=== PATIENT | female | born 1990 | race Caucasian/White ===

== ENCOUNTER 2017-07-02 16:14 | Emergency (ER) | payer MEDICARE, MEDICAID ==
[~2017-07-02] VITALS: Ht 152.4 cm; Wt 53.8 kg
[~2017-07-02 16:14] MED LIST: DULO-31 PO; HYDR-3686 PO; OXCA600T5 PO; QUET-1 PO; ZONI100C42 PO
[2017-07-02 17:17] VITALS: BP 100/70
== END 2017-07-02 18:43 | disposition home or self-care (01) ==
LOC: ER 16:14
DX: H69.83 Other specified disorders of Eustachian tube, bilateral (principal); F17.200 Nicotine dependence, unspecified, uncomplicated; F12.10 Cannabis abuse, uncomplicated; F15.10 Other stimulant abuse, uncomplicated; Z91.048 Other nonmedicinal substance allergy status
CPT/HCPCS: 99281

== ENCOUNTER 2017-07-20 07:43 | Emergency (ER) | payer MEDICARE, MEDICAID ==
[~2017-07-20] VITALS: Ht 152.4 cm; Wt 59.0 kg
[2017-07-20] MEDS ORDERED: LORazepam 2 mg/ml vial IV ONE (07:50)
[2017-07-20 08:19] LABS: BASOPHILS % (AUTO) 0.3 % (0-1); EOSINOPHILS # (AUTO) 0.3 X10'3 (0-0.9); EOSINOPHILS % (AUTO) 2.9 % (0-6); HEMATOCRIT 39.1 % (35.0-45.0); HEMOGLOBIN 13.5 g/dl (12.0-16.0); LYMPHOCYTES # (AUTO) 1.2 X10'3 (1.1-4.8); MEAN CORPUSCULAR HEMOGLOBIN 32.6 PG (27.0-31.0); MEAN CORPUSCULAR HGB CONC 34.5 % (33.0-36.5); MEAN CORPUSCULAR VOLUME 94.4 FL (78-98); MEAN PLATELET VOLUME 6.6 FL (7.4-10.4); MONOCYTES # (AUTO) 0.4 X10'3 (0-0.9); MONOCYTES % (AUTO) 4.5 % (2-12); NEUTROPHILS # (AUTO) 7.3 X10'3 (1.8-7.7); NEUTROPHILS % (AUTO) 79.3 % (42-75); PLATELET COUNT 369 X10'3 (140-440); RED BLOOD COUNT 4.15 X10'6 (4.20-5.60); RED CELL DISTRIBUTION WIDTH 13.3 % (11.5-14.5); WHITE BLOOD COUNT 9.2 X10'3 (4.5-11.0)
[2017-07-20 08:34] LABS: ALANINE AMINOTRANSFERASE 31 U/L (12-78); ALBUMIN 3.6 G/DL (3.4-5.0); ALKALINE PHOSPHATASE 65 IU/L (46-116); ANION GAP 6 (8-16); ASPARTATE AMINO TRANSFERASE 14 U/L (10-37); BILIRUBIN,TOTAL 0.2 MG/DL (0.1-1.0); BLOOD UREA NITROGEN 10 MG/DL (7-18); BUN/CREATININE RATIO 12.7 (6.6-38.0); CALCIUM 9.2 MG/DL (8.5-10.1); CHLORIDE 107 MMOL/L (99-107); CREATININE 0.79 MG/DL (0.40-0.90); GLUCOSE 100 MG/DL (70-104); POTASSIUM 4.1 MMOL/L (3.5-5.1); SODIUM 139 MMOL/L (135-145); TOTAL CARBON DIOXIDE 25.6 MMOL/L (24-32); TOTAL PROTEIN 7.2 G/DL (6.4-8.2); eGFR 88 ML/MIN
[2017-07-20] MEDS ORDERED: oxcarbazepine 150mg tablet PO ONE (08:35)
[2017-07-20] MEDS ORDERED: oxcarbazepine 150mg tablet PO SCH (08:35)
[2017-07-20 09:29] VITALS: BP 94/59
== END 2017-07-20 09:33 | disposition home or self-care (01) ==
LOC: ER 07:44
DX: G40.909 Epilepsy, unspecified, not intractable, without status epilepticus (principal); F12.10 Cannabis abuse, uncomplicated; F15.10 Other stimulant abuse, uncomplicated; F17.210 Nicotine dependence, cigarettes, uncomplicated; Z88.8 Allergy status to other drugs, medicaments and biological substances
CPT/HCPCS: 36415; 80053; 85025; 96374; 99284; J2060

== ENCOUNTER 2017-07-27 13:19 | Emergency (ER) | payer MEDICARE, MEDICAID ==
[~2017-07-27] VITALS: Ht 152.4 cm; Wt 51.5 kg
[2017-07-27] MEDS ORDERED: KEN0.1O TP (15:34)
[2017-07-27] MEDS ORDERED: DIPH50CA3 PO (15:34)
[2017-07-27 16:01] VITALS: BP 100/58
== END 2017-07-27 16:02 | disposition home or self-care (01) ==
LOC: ER 13:20
DX: S70.361A Insect bite (nonvenomous), right thigh, initial encounter (principal); S60.861A Insect bite (nonvenomous) of right wrist, initial encounter; S20.469A Insect bite (nonvenomous) of unspecified back wall of thorax, initial encounter; R21 Rash and other nonspecific skin eruption; F12.10 Cannabis abuse, uncomplicated; F15.10 Other stimulant abuse, uncomplicated; Z88.8 Allergy status to other drugs, medicaments and biological substances; Z79.899 Other long term (current) drug therapy; W57.XXXA Bitten or stung by nonvenomous insect and other nonvenomous arthropods, initial encounter; Y93.89 Activity, other specified; Y92.89 Other specified places as the place of occurrence of the external cause; Y99.8 Other external cause status
CPT/HCPCS: 99283

== ENCOUNTER 2017-08-01 09:20 | Emergency (ER) | payer MEDICARE, MEDICAID ==
[~2017-08-01] VITALS: Ht 152.4 cm; Wt 50.9 kg
[~2017-08-01 09:20] MED LIST changes: +DIPH50CA3 PO; +KEN0.1O TP
[2017-08-01 10:10] LABS: BASOPHILS % (AUTO) 0.8 % (0-1); EOSINOPHILS # (AUTO) 0.4 X10'3 (0-0.9); EOSINOPHILS % (AUTO) 6.5 % (0-6); HEMATOCRIT 42.7 % (35.0-45.0); HEMOGLOBIN 15.1 g/dl (12.0-16.0); LYMPHOCYTES # (AUTO) 2.1 X10'3 (1.1-4.8); LYMPHOCYTES % (AUTO) 34.9 % (21-51); MEAN CORPUSCULAR HEMOGLOBIN 33.3 PG (27.0-31.0); MEAN CORPUSCULAR HGB CONC 35.2 % (33.0-36.5); MEAN CORPUSCULAR VOLUME 94.6 FL (78-98); MEAN PLATELET VOLUME 6.9 FL (7.4-10.4); MONOCYTES # (AUTO) 0.5 X10'3 (0-0.9); MONOCYTES % (AUTO) 8.5 % (2-12); NEUTROPHILS % (AUTO) 49.3 % (42-75); PLATELET COUNT 298 X10'3 (140-440); RED BLOOD COUNT 4.52 X10'6 (4.20-5.60); RED CELL DISTRIBUTION WIDTH 14.6 % (11.5-14.5); WHITE BLOOD COUNT 6.1 X10'3 (4.5-11.0)
[2017-08-01 10:24] LABS: ALANINE AMINOTRANSFERASE 32 U/L (12-78); ALBUMIN 4.1 G/DL (3.4-5.0); ALBUMIN/GLOBULIN RATIO 1.1 (1.1-1.5); ALKALINE PHOSPHATASE 98 IU/L (46-116); ANION GAP 10 (8-16); ASPARTATE AMINO TRANSFERASE 13 U/L (10-37); BILIRUBIN,TOTAL 0.2 MG/DL (0.1-1.0); BLOOD UREA NITROGEN 14 MG/DL (7-18); CALCIUM 8.8 MG/DL (8.5-10.1); CHLORIDE 105 MMOL/L (99-107); GLUCOSE 86 MG/DL (70-104); LIPASE 185 U/L (73-393); POTASSIUM 4.2 MMOL/L (3.5-5.1); SODIUM 139 MMOL/L (135-145); TOTAL CARBON DIOXIDE 24.5 MMOL/L (24-32); TOTAL PROTEIN 7.8 G/DL (6.4-8.2); eGFR 67 ML/MIN
[2017-08-01 10:36] LABS: URINE HCG NEGATIVE (NEG)
[2017-08-01 10:40] LABS: CLARITY,URINE Clear (Clear); COLOR,URINE Yellow (Yellow); GLUCOSE, URINE Negative (Neg); KETONES,URINE Negative (Neg); LEUKOCYTE ESTERASE ,URINE Negative (Neg); NITRITES, URINE Negative (Neg); OCCULT BLOOD,URINE Negative (Neg); PH,URINE 7.5 (4.8-8.0); PROTEIN,URINE Negative (Neg); UROBILINOGEN,URINE 0.2 E.U/dL (0.2-1.0)
[2017-08-01 10:50] LABS: UA COLLECTION TYPE CLN CATCH MIDSTREAM
[2017-08-01 12:55] VITALS: BP 109/74
== END 2017-08-01 12:57 | disposition home or self-care (01) ==
LOC: ER 09:21
DX: R10.30 Lower abdominal pain, unspecified (principal); M54.5 Low back pain; F17.200 Nicotine dependence, unspecified, uncomplicated; F12.10 Cannabis abuse, uncomplicated; F15.10 Other stimulant abuse, uncomplicated
CPT/HCPCS: 36415; 76856; 80053; 81003; 81025; 83690; 85025; 87491; 99285

== ENCOUNTER 2020-06-25 16:56 | Emergency (ER) | payer MEDICAID, MEDICARE ==
[~2020-06-25] VITALS: Ht 152.4 cm; Wt 54.4 kg
[~2020-06-25 16:56] MED LIST changes: -KEN0.1O TP
[2020-06-25 17:05] VITALS: BP 114/71
[2020-06-25 17:55] LABS: BASOPHILS # (AUTO) 0.1 X10'3 (0-0.2); EOSINOPHILS # (AUTO) 0.1 X10'3 (0-0.9); EOSINOPHILS % (AUTO) 2.4 % (0-6); HEMATOCRIT 41.6 % (35.0-45.0); HEMOGLOBIN 14.3 g/dl (12.0-16.0); LYMPHOCYTES # (AUTO) 2.3 X10'3 (1.1-4.8); LYMPHOCYTES % (AUTO) 39.5 % (21-51); MEAN CORPUSCULAR HEMOGLOBIN 32.4 PG (27.0-31.0); MEAN CORPUSCULAR HGB CONC 34.4 g/dL (33.0-36.5); MEAN CORPUSCULAR VOLUME 94.2 FL (78-98); MEAN PLATELET VOLUME 7.1 FL (7.4-10.4); MONOCYTES # (AUTO) 0.4 X10'3 (0-0.9); MONOCYTES % (AUTO) 6.7 % (2-12); NEUTROPHILS % (AUTO) 50.4 % (42-75); PLATELET COUNT 329 X10'3 (140-440); RED BLOOD COUNT 4.41 X10'6 (4.20-5.60); RED CELL DISTRIBUTION WIDTH 13.3 % (11.5-14.5); WHITE BLOOD COUNT 5.9 X10'3 (4.5-11.0)
== END 2020-06-25 19:18 | disposition home or self-care (01) ==
LOC: ER 16:57
DX: T83.89XA Other specified complication of genitourinary prosthetic devices, implants and grafts, initial encounter (principal); F31.9 Bipolar disorder, unspecified; F17.200 Nicotine dependence, unspecified, uncomplicated; F15.10 Other stimulant abuse, uncomplicated; F12.10 Cannabis abuse, uncomplicated; Z88.4 Allergy status to anesthetic agent; Y82.9 Unspecified medical devices associated with adverse incidents; Y92.89 Other specified places as the place of occurrence of the external cause
CPT/HCPCS: 36415; 85025; 99283

== ENCOUNTER 2020-12-04 09:38 | Emergency (ER) | payer MEDICAID ==
[~2020-12-04] VITALS: Ht 152.4 cm; Wt 57.7 kg
[2020-12-04] MEDS ORDERED: normal saline 1000ML IV soln IVB ONE (10:25)
[2020-12-04] MEDS ORDERED: metoclopramide 5 mg/ml inj IV ONE (10:25)
[2020-12-04] MEDS ORDERED: magnesium 2GM in 50ml NS 50 ML IV ONE (10:25)
[2020-12-04] MEDS ORDERED: LORazepam 2 mg/ml vial IV ONE (10:25)
[2020-12-04 10:43] LABS: BASOPHILS % (AUTO) 0.6 % (0-1); EOSINOPHILS # (AUTO) 0.1 X10'3 (0-0.9); EOSINOPHILS % (AUTO) 0.8 % (0-6); HEMATOCRIT 41.7 % (35.0-45.0); HEMOGLOBIN 14.4 g/dl (12.0-16.0); LYMPHOCYTES # (AUTO) 1.1 X10'3 (1.1-4.8); LYMPHOCYTES % (AUTO) 17.3 % (21-51); MEAN CORPUSCULAR HEMOGLOBIN 32.7 PG (27.0-31.0); MEAN CORPUSCULAR HGB CONC 34.6 g/dL (33.0-36.5); MEAN CORPUSCULAR VOLUME 94.4 FL (78-98); MEAN PLATELET VOLUME 7.2 FL (7.4-10.4); MONOCYTES # (AUTO) 0.3 X10'3 (0-0.9); MONOCYTES % (AUTO) 5.4 % (2-12); NEUTROPHILS # (AUTO) 4.8 X10'3 (1.8-7.7); NEUTROPHILS % (AUTO) 75.9 % (42-75); PLATELET COUNT 320 X10'3 (140-440); RED BLOOD COUNT 4.42 X10'6 (4.20-5.60); RED CELL DISTRIBUTION WIDTH 13.4 % (11.5-14.5); WHITE BLOOD COUNT 6.4 X10'3 (4.5-11.0)
[2020-12-04 10:59] LABS: ALANINE AMINOTRANSFERASE 21 U/L (12-78); ALBUMIN 4.2 G/DL (3.4-5.0); ALBUMIN/GLOBULIN RATIO 1.1 (1.1-1.5); ALKALINE PHOSPHATASE 63 IU/L (46-116); ANION GAP 12 (8-16); ASPARTATE AMINO TRANSFERASE 24 U/L (10-37); BILIRUBIN,TOTAL 0.3 MG/DL (0.1-1.0); BLOOD UREA NITROGEN 13 MG/DL (7-18); BUN/CREATININE RATIO 15.5 (6.6-38.0); CALCIUM 8.8 MG/DL (8.5-10.1); CHLORIDE 103 MMOL/L (99-107); CREATININE 0.84 MG/DL (0.40-0.90); GLUCOSE 93 MG/DL (70-104); POTASSIUM 3.8 MMOL/L (3.5-5.1); SODIUM 137 MMOL/L (135-145); eGFR 80 ML/MIN
--- NOTE | 2020-12-04 11:17 | NUR ---
ASSUMED CARE. REPORT RECEIVED FROM AMARA COCHRAN. PT SHOWS NO S/S OF ACUTE DISTRESS.
--- NOTE | 2020-12-04 11:43 | NUR ---
pt sleeping, RR even and unlabored, unable to give UA at this time
[2020-12-04] MEDS ORDERED: dexamethasone sod phosphate 10mg/ml inj IV STA (12:18)
[2020-12-04] MEDS ORDERED: ketorolac trometh. 30mg/ml inj. IV ONE (12:20)
[2020-12-04 13:15] VITALS: BP 108/68
== END 2020-12-04 13:20 | disposition home or self-care (01) ==
LOC: ER 09:38
DX: G43.909 Migraine, unspecified, not intractable, without status migrainosus (principal); G40.909 Epilepsy, unspecified, not intractable, without status epilepticus; R11.0 Nausea; F41.9 Anxiety disorder, unspecified; F31.9 Bipolar disorder, unspecified; F12.90 Cannabis use, unspecified, uncomplicated; F15.90 Other stimulant use, unspecified, uncomplicated; Z86.69 Personal history of other diseases of the nervous system and sense organs; Z72.89 Other problems related to lifestyle; Z88.8 Allergy status to other drugs, medicaments and biological substances; Z79.899 Other long term (current) drug therapy
CPT/HCPCS: 36415; 70450; 80053; 85025; 93005; 96365; 96366; 96375; 99285; J1100; J1885; J2060; J2765; J3475; J7030

== ENCOUNTER 2020-12-16 16:29 | Emergency (ER) | payer MEDICAID ==
[~2020-12-16] VITALS: Ht 152.4 cm; Wt 133.0 kg
[2020-12-16 17:21] VITALS: BP 118/80
--- NOTE | 2020-12-16 17:21 | NUR ---
awaiting ed MD.
--- NOTE | 2020-12-16 17:22 | NUR ---
Dr. Galeano at bedside.
[2020-12-16] MEDS ORDERED: normal saline 1000ml 1,000 ML IV ONE (17:25)
[2020-12-16] MEDS ORDERED: ketorolac trometh. 30mg/ml inj. IV ONE (17:25)
[2020-12-16] MEDS ORDERED: proCHLORperazine 10 MG/2 ml inj IV ONE (17:25)
[2020-12-16] MEDS ORDERED: diphenhydrAMINE 50 mg/ml inj IV ONE (17:25)
[2020-12-16] MEDS ORDERED: dexamethasone 4mg/ml inj IV SCH (17:25)
[2020-12-16] MEDS ORDERED: acetaminophen 325mg tablet PO ONE (17:25)
--- NOTE | 2020-12-16 18:14 | NUR ---
PT SCREEMING AT STAFF, THROWING IV POLE AND ALMOST MISSING RN. SECURITY CALLED FOR ASSISTANCE IN REMOVING IV AND EXCORTING PT OUT OF ER.
== END 2020-12-16 19:14 | disposition left against medical advice (07) ==
LOC: ER 16:29
DX: G43.909 Migraine, unspecified, not intractable, without status migrainosus (principal); F41.9 Anxiety disorder, unspecified; F31.9 Bipolar disorder, unspecified; F12.90 Cannabis use, unspecified, uncomplicated; F15.90 Other stimulant use, unspecified, uncomplicated; Z86.69 Personal history of other diseases of the nervous system and sense organs; Z72.89 Other problems related to lifestyle; Z88.8 Allergy status to other drugs, medicaments and biological substances; Z79.899 Other long term (current) drug therapy
CPT/HCPCS: 99281

== ENCOUNTER 2021-01-05 12:16 | Emergency (ER) | payer MEDICAID ==
[~2021-01-05] VITALS: Ht 152.4 cm; Wt 57.7 kg
[2021-01-05] MEDS ORDERED: LORazepam 2 mg/ml vial IV ONE (12:30)
[2021-01-05 13:13] LABS: BASOPHILS % (AUTO) 0.6 % (0-1); EOSINOPHILS # (AUTO) 0.2 X10'3 (0-0.9); HEMATOCRIT 36.7 % (35.0-45.0); HEMOGLOBIN 12.5 g/dl (12.0-16.0); LYMPHOCYTES # (AUTO) 1.8 X10'3 (1.1-4.8); LYMPHOCYTES % (AUTO) 32.3 % (21-51); MEAN CORPUSCULAR HEMOGLOBIN 32.4 PG (27.0-31.0); MEAN CORPUSCULAR HGB CONC 34.1 g/dL (33.0-36.5); MEAN PLATELET VOLUME 7.4 FL (7.4-10.4); MONOCYTES # (AUTO) 0.4 X10'3 (0-0.9); MONOCYTES % (AUTO) 7.8 % (2-12); NEUTROPHILS # (AUTO) 3.2 X10'3 (1.8-7.7); NEUTROPHILS % (AUTO) 56.3 % (42-75); PLATELET COUNT 298 X10'3 (140-440); RED BLOOD COUNT 3.86 X10'6 (4.20-5.60); RED CELL DISTRIBUTION WIDTH 13.2 % (11.5-14.5); WHITE BLOOD COUNT 5.6 X10'3 (4.5-11.0)
[2021-01-05 13:20] LABS: ALANINE AMINOTRANSFERASE 19 U/L (12-78); ALBUMIN 3.5 G/DL (3.4-5.0); ALBUMIN/GLOBULIN RATIO 1.1 (1.1-1.5); ALKALINE PHOSPHATASE 47 IU/L (46-116); ANION GAP 9 (8-16); ASPARTATE AMINO TRANSFERASE 11 U/L (10-37); BILIRUBIN,TOTAL 0.2 MG/DL (0.1-1.0); BLOOD UREA NITROGEN 10 MG/DL (7-18); BUN/CREATININE RATIO 12.7 (6.6-38.0); CHLORIDE 105 MMOL/L (99-107); CREATININE 0.79 MG/DL (0.40-0.90); GLUCOSE 89 MG/DL (70-104); MAGNESIUM 1.9 MG/DL (1.5-2.4); POTASSIUM 3.9 MMOL/L (3.5-5.1); SODIUM 137 MMOL/L (135-145); TOTAL PROTEIN 6.7 G/DL (6.4-8.2); eGFR 86 ML/MIN
[2021-01-05 14:09] VITALS: BP 102/66
== END 2021-01-05 14:13 | disposition home or self-care (01) ==
LOC: ER 12:17
DX: G40.909 Epilepsy, unspecified, not intractable, without status epilepticus (principal); G43.909 Migraine, unspecified, not intractable, without status migrainosus; F41.9 Anxiety disorder, unspecified; F31.9 Bipolar disorder, unspecified; F12.90 Cannabis use, unspecified, uncomplicated; F15.90 Other stimulant use, unspecified, uncomplicated; Z86.69 Personal history of other diseases of the nervous system and sense organs; Z72.89 Other problems related to lifestyle; Z88.8 Allergy status to other drugs, medicaments and biological substances; Z79.899 Other long term (current) drug therapy
CPT/HCPCS: 36415; 80053; 83735; 85025; 96374; 99284; J2060

== ENCOUNTER 2021-03-30 11:00 | Emergency (ER) | payer MEDICAID ==
[~2021-03-30] VITALS: Ht 180.3 cm; Wt 109.1 kg
[2021-03-30 11:34] VITALS: BP 122/99
[2021-03-30] MEDS ORDERED: METH4TAB81 PO (12:04)
== END 2021-03-30 12:39 | disposition home or self-care (01) ==
LOC: ER 11:00
DX: J98.01 Acute bronchospasm (principal); Z20.822 Contact with and (suspected) exposure to COVID-19; R05 Cough; R09.89 Other specified symptoms and signs involving the circulatory and respiratory systems; R50.9 Fever, unspecified; J02.9 Acute pharyngitis, unspecified; G43.909 Migraine, unspecified, not intractable, without status migrainosus; F41.9 Anxiety disorder, unspecified; F31.9 Bipolar disorder, unspecified; F17.200 Nicotine dependence, unspecified, uncomplicated; F12.90 Cannabis use, unspecified, uncomplicated; F15.90 Other stimulant use, unspecified, uncomplicated; Z86.69 Personal history of other diseases of the nervous system and sense organs; Z72.89 Other problems related to lifestyle; Z88.8 Allergy status to other drugs, medicaments and biological substances; Z79.899 Other long term (current) drug therapy
CPT/HCPCS: 36415; 99283; U0003; U0005

== ENCOUNTER 2022-11-10 19:43 | Emergency (ER) | payer MEDICAID ==
[~2022-11-10] VITALS: Ht 152.4 cm; Wt 56.8 kg
[~2022-11-10 19:43] MED LIST changes: -DIPH50CA3 PO; +DIPH50CA40 PO; +METH4TAB81 PO
[2022-11-10 19:51] VITALS: BP 117/85
== END 2022-11-10 20:41 ==
LOC: ER 19:43
DX: Z00.00 Encounter for general adult medical examination without abnormal findings (principal); G43.909 Migraine, unspecified, not intractable, without status migrainosus; F41.9 Anxiety disorder, unspecified; F31.9 Bipolar disorder, unspecified; F12.90 Cannabis use, unspecified, uncomplicated; F15.90 Other stimulant use, unspecified, uncomplicated; Z72.89 Other problems related to lifestyle; Z88.8 Allergy status to other drugs, medicaments and biological substances; Z79.899 Other long term (current) drug therapy
CPT/HCPCS: 36415; 84702; 99283

== ENCOUNTER 2022-12-17 09:13 | Emergency (ER) | payer MEDICAID ==
[~2022-12-17] VITALS: Ht 152.4 cm; Wt 58.2 kg
[2022-12-17] MEDS ORDERED: ondansetron 4mg rapidly disintigrating tab PO ONE (10:05)
[2022-12-17] MEDS ORDERED: famotidine 20mg tablet PO ONE (10:05)
[2022-12-17] MEDS ORDERED: LIDOcaine Viscous 15ml cup MM ONE (10:05)
[2022-12-17] MEDS ORDERED: mag hydrox/Alum hydrox/simeth 30ml oral suspension PO ONE (10:05)
[2022-12-17] MEDS ORDERED: pantoprazole 40mg Tablet.DR PO ONE (10:05)
[2022-12-17 10:08] LABS: BASOPHILS % (AUTO) 0.5 % (0-1); EOSINOPHILS # (AUTO) 0.1 X10'3 (0-0.9); EOSINOPHILS % (AUTO) 1.5 % (0-6); HEMATOCRIT 38.6 % (35.0-45.0); LYMPHOCYTES # (AUTO) 2.2 X10'3 (1.1-4.8); LYMPHOCYTES % (AUTO) 30.5 % (21-51); MEAN CORPUSCULAR HEMOGLOBIN 32.7 PG (27.0-31.0); MEAN CORPUSCULAR HGB CONC 33.8 g/dL (33.0-36.5); MEAN CORPUSCULAR VOLUME 96.9 FL (78-98); MEAN PLATELET VOLUME 6.9 FL (7.4-10.4); MONOCYTES # (AUTO) 0.5 X10'3 (0-0.9); MONOCYTES % (AUTO) 7.4 % (2-12); NEUTROPHILS # (AUTO) 4.4 X10'3 (1.8-7.7); NEUTROPHILS % (AUTO) 60.1 % (42-75); PLATELET COUNT 312 X10'3 (140-440); RED BLOOD COUNT 3.98 X10'6 (4.20-5.60); WHITE BLOOD COUNT 7.3 X10'3 (4.5-11.0)
[2022-12-17 10:11] LABS: CLARITY,URINE CLOUDY (Clear); COLOR,URINE STRAW (Yellow); GLUCOSE, URINE NEGATIVE (Neg); KETONES,URINE NEGATIVE (Neg); LEUKOCYTE ESTERASE ,URINE NEGATIVE (Neg); NITRITES, URINE NEGATIVE (Neg); OCCULT BLOOD,URINE TRACE-INTACT (Neg); PROTEIN,URINE NEGATIVE (Neg); URINE HCG NEGATIVE (NEG); UROBILINOGEN,URINE 0.2 E.U/dL (0.2-1.0)
[2022-12-17 10:15] LABS: UA COLLECTION TYPE CLN CATCH MIDSTREAM
[2022-12-17 10:22] LABS: ALANINE AMINOTRANSFERASE 26 U/L (12-78); ALBUMIN 3.5 G/DL (3.4-5.0); ALKALINE PHOSPHATASE 56 IU/L (46-116); ANION GAP 9 (8-16); ASPARTATE AMINO TRANSFERASE 21 U/L (10-37); BILIRUBIN,TOTAL 0.2 MG/DL (0.1-1.0); BLOOD UREA NITROGEN 14 MG/DL (7-18); BUN/CREATININE RATIO 17.5 (10.0-20.0); CALCIUM 8.6 MG/DL (8.5-10.1); CHLORIDE 102 MMOL/L (99-107); GLUCOSE 85 MG/DL (70-104); LIPASE 131 U/L (73-393); POTASSIUM 3.5 MMOL/L (3.5-5.1); SODIUM 136 MMOL/L (135-145); TOTAL CARBON DIOXIDE 24.9 MMOL/L (24-32); eGFR 84 ML/MIN
[2022-12-17 10:42] LABS: SQUAMOUS EPITHELIAL CELL,UR MODERATE /LPF (FEW)
[2022-12-17 10:43] LABS: TRANSITIONAL EPI CELLS,URINE FEW /HPF
[2022-12-17 10:44] LABS: RBC,URINE 0-2 /HPF (0-2)
[2022-12-17 10:45] LABS: BACTERIA,URINE 4+ /HPF (Neg); WBC,URINE 0-4 /HPF (0-4)
[2022-12-17 10:47] LABS: MUCUS STRANDS FEW /LPF (Neg)
[2022-12-17 12:24] VITALS: BP 131/84
[2022-12-17] MEDS ORDERED: dicyclomine 10 MG capsule PO ONE (12:25)
[2022-12-17] MEDS ORDERED: ONDA8TAB13 PO (12:30)
[2022-12-17] MEDS ORDERED: PANT20TA18 PO (12:30)
[2022-12-17] MEDS ORDERED: POLY119P2 PO (12:30)
[2022-12-17 13:47] LABS: OCCULT BLOOD STOOL POSITIVE (Neg)
--- NOTE | 2022-12-19 14:06 | NUR ---
LEFT MESSAGE REGARDING RX FOR ANTIBIOTICS PER DR MAK FOR POSITIVE URINE CULTURE.
== END 2022-12-17 12:44 | disposition home or self-care (01) ==
LOC: ER 09:13
DX: K29.00 Acute gastritis without bleeding (principal); K59.00 Constipation, unspecified; N39.0 Urinary tract infection, site not specified; R10.11 Right upper quadrant pain; G43.909 Migraine, unspecified, not intractable, without status migrainosus; F31.9 Bipolar disorder, unspecified; F12.90 Cannabis use, unspecified, uncomplicated; F15.20 Other stimulant dependence, uncomplicated; Z88.8 Allergy status to other drugs, medicaments and biological substances
CPT/HCPCS: 36415; 76700; 80053; 81001; 81025; 82272; 83690; 85025; 87077; 87088; 87186; 99284

== ENCOUNTER 2023-03-21 00:40 | Emergency (ER) | payer MEDICAID ==
[~2023-03-21] VITALS: Ht 261.6 cm; Wt 75.0 kg
[~2023-03-21 00:40] MED LIST changes: +ONDA8TAB13 PO; +PANT20TA18 PO; +POLY119P2 PO
[2023-03-21 00:58] VITALS: TEMP 97.4
--- NOTE | 2023-03-21 01:24 | NUR ---
pt received 8 mg zofran iv via ems and smells of etoh.
[2023-03-21 01:34] LABS: BASOPHILS % (AUTO) 0.7 % (0-1); EOSINOPHILS # (AUTO) 0.2 X10'3 (0-0.9); EOSINOPHILS % (AUTO) 3.9 % (0-6); HEMATOCRIT 37.7 % (35.0-45.0); HEMOGLOBIN 13.1 g/dl (12.0-16.0); LYMPHOCYTES % (AUTO) 41.1 % (21-51); MEAN CORPUSCULAR HEMOGLOBIN 33.2 PG (27.0-31.0); MEAN CORPUSCULAR HGB CONC 34.7 g/dL (33.0-36.5); MEAN CORPUSCULAR VOLUME 95.6 FL (78-98); MEAN PLATELET VOLUME 6.7 FL (7.4-10.4); MONOCYTES # (AUTO) 0.3 X10'3 (0-0.9); NEUTROPHILS # (AUTO) 2.3 X10'3 (1.8-7.7); NEUTROPHILS % (AUTO) 47.3 % (42-75); PLATELET COUNT 253 X10'3 (140-440); RED BLOOD COUNT 3.94 X10'6 (4.20-5.60); RED CELL DISTRIBUTION WIDTH 13.1 % (11.5-14.5); WHITE BLOOD COUNT 4.9 X10'3 (4.5-11.0)
[2023-03-21 01:46] LABS: ALANINE AMINOTRANSFERASE 29 U/L (12-78); ALBUMIN 3.4 G/DL (3.4-5.0); ALBUMIN/GLOBULIN RATIO 0.9 (1.1-1.5); ALKALINE PHOSPHATASE 49 IU/L (46-116); ANION GAP 7 (8-16); ASPARTATE AMINO TRANSFERASE 18 U/L (10-37); BLOOD UREA NITROGEN 11 MG/DL (7-18); BUN/CREATININE RATIO 15.5 (10.0-20.0); CALCIUM 8.5 MG/DL (8.5-10.1); CHLORIDE 107 MMOL/L (99-107); CREATININE 0.71 MG/DL (0.40-0.90); ETHANOL 90 MG/DL (<10); GLUCOSE 102 MG/DL (70-104); LIPASE 123 U/L (73-393); POTASSIUM 3.4 MMOL/L (3.5-5.1); SODIUM 143 MMOL/L (135-145); TOTAL CARBON DIOXIDE 28.6 MMOL/L (24-32); eCRCL 136 ML/MIN; eGFR > 90 ML/MIN
[2023-03-21 01:48] LABS: BILIRUBIN,TOTAL 0.1 MG/DL (0.1-1.0)
--- NOTE | 2023-03-21 02:27 | NUR ---
per patient pt had a pproximately a half a pint of vodka.
[2023-03-21] MEDS ORDERED: normal saline 1000ml 1,000 ML IV SCH (05:00)
[2023-03-21] MEDS ORDERED: normal saline 1000ML IV soln IVB ONE (05:10)
[2023-03-21] MEDS ORDERED: metoclopramide 5 mg/ml inj IV ONE (05:40)
[2023-03-21] MEDS ORDERED: pantoprazole 40mg IV 80 MG in normal saline 100ml IV soln 100 ML IV ONE (05:40)
[2023-03-21] MEDS: pantoprazole 40MG/NS 100ML BAG 100 ML IV SCH ×2 (05:55→06:17)
[2023-03-21] MEDS ORDERED: PANT20TA18 PO (06:13)
[2023-03-21] MEDS ORDERED: ONDA4TAB12 PO (06:13)
[2023-03-21 08:06] LABS: CREATINE KINASE 90 U/L (26-192)
[2023-03-21 08:26] VITALS: BP 126/90; PULSE 87; RESP 17; O2SAT 97
== END 2023-03-21 08:28 | disposition home or self-care (01) ==
LOC: ER 00:40
DX: K29.00 Acute gastritis without bleeding (principal); F10.129 Alcohol abuse with intoxication, unspecified; G40.909 Epilepsy, unspecified, not intractable, without status epilepticus; E86.0 Dehydration; F17.200 Nicotine dependence, unspecified, uncomplicated; F12.90 Cannabis use, unspecified, uncomplicated; Z88.8 Allergy status to other drugs, medicaments and biological substances; Z79.899 Other long term (current) drug therapy; Z91.148 Patient's other noncompliance with medication regimen for other reason; Y90.4 Blood alcohol level of 80-99 mg/100 ml
CPT/HCPCS: 36415; 80053; 80320; 82550; 83605; 83690; 85025; 96361; 96365; 96375; 99285; C9113; J2765; J7030

== ENCOUNTER → 2023-12-17 | Outpatient (CLI) | payer MEDICAID ==
[~2023-12-17] MED LIST changes: +ONDA4TAB12 PO
== END | disposition home or self-care (01) ==
LOC: RAD 14:12
PROVIDERS: ATTEND Obstetrics & Gynecology
DX: O09.93 Supervision of high risk pregnancy, unspecified, third trimester (principal); Z3A.35 35 weeks gestation of pregnancy
CPT/HCPCS: 76811